=== PATIENT | male | born 1970 | race African-American/Black ===

== ENCOUNTER 2017-07-11 06:50 | Inpatient (IN) | payer MEDICAID, OTHER ==
[~2017-07-11] VITALS: Ht 185.4 cm; Wt 81.6 kg
[2017-07-11] MEDS ORDERED: LORAZEPAM INJ 2 MG/ML VIAL IV ONE (07:00)
[2017-07-11] MEDS ORDERED: IV NS 0.9% 1,000 ML BAG IV ONE (07:00)
[2017-07-11] MEDS ORDERED: ONDANSETRON HCL/PF 4 MG/2 ML VIAL IVP ONE (07:00)
[2017-07-11] MEDS ORDERED: LORAZEPAM INJ 2 MG/ML VIAL ONE (07:03)
[2017-07-11] MEDS ORDERED: ONDANSETRON HCL/PF 4 MG/2 ML VIAL ONE ×2 (07:03→12:25)
[2017-07-11 07:16] LABS: BASOPHILS # (AUTO) 0.1 /CMM (0.0-0.2); BASOPHILS % (AUTO) 0.6 % (0.0-2.0); HEMATOCRIT 44 % (39-51); HEMOGLOBIN 14.7 g/dL (13.5-17.5); LYMPHOCYTES # (AUTO) 0.5 /CMM (0.8-4.8); LYMPHOCYTES % (AUTO) 3.9 % (20.0-44.0); MEAN CORPUSCULAR HEMOGLOBIN 32 PG (26.0-33.0); MEAN CORPUSCULAR HGB CONC 34 g/dl (31.0-36.0); MEAN CORPUSCULAR VOLUME 96 fL (80-96); MONOCYTES # (AUTO) 0.8 /CMM (0.1-1.30); MONOCYTES % (AUTO) 5.7 % (2.0-12.0); NEUTROPHILS # (AUTO) 12.5 /CMM (1.8-8.9); NEUTROPHILS % (AUTO) 89.8 % (43.0-81.0); PLATELET COUNT (AUTO) 151 /CMM (150-450); RDW COEFFICIENT OF VARIATION 13.2 (11.5-15.0); RED BLOOD CELL COUNT(AUTO) 4.55 MIL/uL (4.5-6.0); WHITE BLOOD COUNT (AUTO) 13.9 K/uL (4.3-11.0)
[2017-07-11] MEDS ORDERED: MORPHINE SULFATE INJ 4 MG/ML DISP.SYRIN ONE (07:27)
[2017-07-11] MEDS ORDERED: MORPHINE SULFATE INJ 2 MG/ML DISP.SYRIN IV ONE (07:30)
[2017-07-11 07:31] LABS: ALBUMIN 4.4 g/dL (3.4-5.0); BILIRUBIN,DIRECT 0.2 mg/dL (0.0-0.2); BILIRUBIN,TOTAL 1.1 mg/dL (0.2-1.0); CALCIUM, SERUM 8.1 mg/dL (8.5-10.1); CREATININE 1.5 mg/dL (0.6-1.3); POTASSIUM 4.5 mmol/L (3.5-5.1); TOTAL PROTEIN, SERUM 8.4 g/dL (6.4-8.2)
[2017-07-11] MEDS ORDERED: IV NS 0.9% 1,000 ML IV ONE ×2 (08:00→12:00)
[2017-07-11] MEDS ORDERED: diphenhydrAMINE HCL 50 MG/ML VIAL ONE (09:39)
[2017-07-11] MEDS ORDERED: diphenhydrAMINE HCL 50 MG/ML VIAL IV ONE (10:00)
[2017-07-11] MEDS ORDERED: ONDA4TAB5 PO (11:07)
[2017-07-11] MEDS ORDERED: GABA-534 PO (11:07)
[2017-07-11] MEDS ORDERED: UNK BP MEDICATION (11:12)
[2017-07-11 11:22] LABS: CALCIUM, SERUM 7.7 mg/dL (8.5-10.1); CREATININE 1.1 mg/dL (0.6-1.3); POTASSIUM 4.2 mmol/L (3.5-5.1)
[2017-07-11] MEDS ORDERED: INSULIN REGULAR, HUMAN 100 UNIT in IV NS 0.9% 99 ML IV PRN ×2 (11:30)
[2017-07-11 12:00] VITALS: BP 154/111
[2017-07-11] MEDS ORDERED: ONDANSETRON HCL/PF - ER 4 MG/2 ML VIAL IV ONE (12:30)
[2017-07-11 13:18] LABS: PHOSPHORUS 2.3 mg/dL (2.5-4.9)
[2017-07-11 13:25] LABS: MAGNESIUM 1.2 mg/dL (1.8-2.4)
[2017-07-11 14:00] VITALS: BP 154/111
[2017-07-11] MEDS ORDERED: Z GUARD REMEDY 2 OZ OINT TP PRN (14:00)
[2017-07-11] MEDS ORDERED: ZOLPIDEM TARTRATE 5 MG TABLET PO PRN (14:00)
[2017-07-11] MEDS ORDERED: IBUPROFEN 400 MG TABLET PO PRN (14:00)
[2017-07-11] MEDS ORDERED: MAGNESIUM HYDROXIDE 30 ML UDC PO PRN (14:00)
[2017-07-11] MEDS: BOOST GLUCOSE CONTROL VANILLA 237 ML BOX PO SCH ×3 (14:00→17:00)
[2017-07-11] MEDS ORDERED: ACETAMINOPHEN 325 MG TABLET PO PRN (14:00)
[2017-07-11] MEDS ORDERED: K PHOS NEUTRAL 250 MG TABLET PO ONE (14:30)
[2017-07-11] MEDS: HYDROCODONE/APAP 5/325MG 1 EACH TABLET PO PRN ×3 (14:34→23:24)
[2017-07-11] MEDS: IV NS 0.9% 1,000 ML IV PRN ×2 (14:34→22:01)
[2017-07-11] MEDS: GABAPENTIN 300 MG CAPSULE PO SCH ×2 (14:34→17:00)
[2017-07-11 16:00] VITALS: BP 138/102
[2017-07-11] MEDS ORDERED: Magnesium 1GM/D5W 100ML PREMIX PIGGYBACK IV ONE (17:00)
[2017-07-11] MEDS: diphenhydrAMINE HCL 25 MG CAPSULE PO PRN (17:18)
[2017-07-11] MEDS: Magnesium 1GM/D5W 100ML PREMIX 100 ML IV SCH ×4 (17:18→20:24)
[2017-07-11] MEDS: ONDANSETRON HCL/PF 4 MG/2 ML VIAL IVP PRN (18:04)
[2017-07-11 20:00] VITALS: BP 126/90
[2017-07-12] VITALS (8 sets, daily range): BP systolic 127–142; BP diastolic 89–108
[2017-07-12] MEDS: KETOROLAC TROMETHAMINE INJ 30 MG/ML VIAL IV PRN ×3 (01:46→20:32)
[2017-07-12 07:26] LABS: BASOPHILS % (AUTO) 0.3 % (0.0-2.0); EOSINOPHILS % (AUTO) 0.1 % (0.0-6.0); HEMATOCRIT 44 % (39-51); HEMOGLOBIN 14.9 g/dL (13.5-17.5); LYMPHOCYTES # (AUTO) 1.2 /CMM (0.8-4.8); LYMPHOCYTES % (AUTO) 16.8 % (20.0-44.0); MEAN CORPUSCULAR HEMOGLOBIN 32 PG (26.0-33.0); MEAN CORPUSCULAR HGB CONC 34 g/dl (31.0-36.0); MEAN CORPUSCULAR VOLUME 95 fL (80-96); MONOCYTES # (AUTO) 0.4 /CMM (0.1-1.30); NEUTROPHILS # (AUTO) 5.6 /CMM (1.8-8.9); NEUTROPHILS % (AUTO) 76.8 % (43.0-81.0); PLATELET COUNT (AUTO) 89 /CMM (150-450); RDW COEFFICIENT OF VARIATION 13.3 (11.5-15.0); RED BLOOD CELL COUNT(AUTO) 4.62 MIL/uL (4.5-6.0); WHITE BLOOD COUNT (AUTO) 7.3 K/uL (4.3-11.0)
[2017-07-12 07:48] LABS: CALCIUM, SERUM 8.9 mg/dL (8.5-10.1); CREATININE 0.8 mg/dL (0.6-1.3); POTASSIUM 3.2 mmol/L (3.5-5.1)
[2017-07-12] MEDS: BOOST GLUCOSE CONTROL VANILLA 237 ML BOX PO SCH ×2 (08:00→16:42)
[2017-07-12 08:14] LABS: EOSINOPHILS % (MANUAL) 1 % (0-4); LYMPHOCYTES % (MANUAL) 19 % (16-48); MONOCYTES % (MANUAL) 6 % (0-11.0); NEUTROPHILS % (MANUAL) 74 (42-76)
[2017-07-12] MEDS: GABAPENTIN 300 MG CAPSULE PO SCH ×2 (08:40→16:42)
[2017-07-12] MEDS: PANTOPRAZOLE 40 MG TABLET.DR PO SCH (08:40)
[2017-07-12] MEDS: HYDROCODONE/APAP 5/325MG 1 EACH TABLET PO PRN ×4 (08:46→22:44)
[2017-07-12] MEDS: diphenhydrAMINE HCL 25 MG CAPSULE PO PRN ×3 (08:46→22:17)
[2017-07-12] MEDS: POTASSIUM CHLORIDE 20 MEQ TAB.PRT.SR PO SCH ×2 (09:42→10:50)
[2017-07-12] MEDS: Potassium Phosphate meq 11 MEQ in IV D5W 100 ML IV SCH ×2 (11:26→14:50)
[2017-07-12] MEDS: IV NS 0.9% 1,000 ML IV PRN (20:30)
[2017-07-12] MEDS: ONDANSETRON HCL/PF 4 MG/2 ML VIAL IVP PRN (20:44)
[2017-07-13] MEDS: IV NS 0.9% 1,000 ML IV PRN ×3 (03:22→20:15)
[2017-07-13] MEDS: HYDROCODONE/APAP 5/325MG 1 EACH TABLET PO PRN ×4 (03:26→20:33)
[2017-07-13 04:00] VITALS: BP 114/83
[2017-07-13 07:15] LABS: BASOPHILS % (AUTO) 0.3 % (0.0-2.0); EOSINOPHILS % (AUTO) 0.1 % (0.0-6.0); HEMATOCRIT 46 % (39-51); HEMOGLOBIN 15.2 g/dL (13.5-17.5); LYMPHOCYTES # (AUTO) 1.5 /CMM (0.8-4.8); MEAN CORPUSCULAR HEMOGLOBIN 32 PG (26.0-33.0); MEAN CORPUSCULAR HGB CONC 33 g/dl (31.0-36.0); MEAN CORPUSCULAR VOLUME 96 fL (80-96); MONOCYTES # (AUTO) 0.5 /CMM (0.1-1.30); MONOCYTES % (AUTO) 7.3 % (2.0-12.0); NEUTROPHILS # (AUTO) 4.4 /CMM (1.8-8.9); NEUTROPHILS % (AUTO) 68.3 % (43.0-81.0); PLATELET COUNT (AUTO) 88 /CMM (150-450); RDW COEFFICIENT OF VARIATION 13.6 (11.5-15.0); RED BLOOD CELL COUNT(AUTO) 4.75 MIL/uL (4.5-6.0); WHITE BLOOD COUNT (AUTO) 6.4 K/uL (4.3-11.0)
[2017-07-13 07:33] LABS: CALCIUM, SERUM 8.7 mg/dL (8.5-10.1); MAGNESIUM 1.6 mg/dL (1.8-2.4); PHOSPHORUS 2.6 mg/dL (2.5-4.9); POTASSIUM 3.6 mmol/L (3.5-5.1)
[2017-07-13] MEDS: PANTOPRAZOLE 40 MG TABLET.DR PO SCH (07:54)
[2017-07-13] MEDS: BOOST GLUCOSE CONTROL VANILLA 237 ML BOX PO SCH ×2 (07:55→16:23)
[2017-07-13] MEDS: diphenhydrAMINE HCL 25 MG CAPSULE PO PRN ×2 (07:55→11:22)
[2017-07-13] MEDS: LORAZEPAM 1 MG TABLET PO PRN ×2 (07:59→17:58)
[2017-07-13 08:00] VITALS: BP 126/101
[2017-07-13] MEDS: GABAPENTIN 300 MG CAPSULE PO SCH ×2 (08:00→16:23)
[2017-07-13 08:08] LABS: BAND % (MANUAL) 2 % (0.0-5.0); LYMPHOCYTES % (MANUAL) 27 % (16-48); MONOCYTES % (MANUAL) 6 % (0-11.0); NEUTROPHILS % (MANUAL) 65 (42-76)
[2017-07-13 08:30] VITALS: BP 137/106
[2017-07-13] MEDS: ONDANSETRON HCL/PF 4 MG/2 ML VIAL IVP PRN ×2 (09:11→22:02)
[2017-07-13] MEDS: Magnesium 1GM/D5W 100ML PREMIX 100 ML IV SCH ×2 (10:22→13:13)
[2017-07-13] MEDS ORDERED: ASPIRIN 81 MG TAB.CHEW PO SCH (10:30)
[2017-07-13] MEDS ORDERED: Magnesium 1GM/D5W 100ML PREMIX 100 ML IV SCH (11:00)
[2017-07-13] MEDS: KETOROLAC TROMETHAMINE INJ 30 MG/ML VIAL IV PRN ×2 (11:22→18:03)
[2017-07-13 12:00] VITALS: BP 118/91
[2017-07-13 12:04] LABS: ALBUMIN 3.6 g/dL (3.4-5.0); BILIRUBIN,TOTAL 0.8 mg/dL (0.2-1.0); CALCIUM, SERUM 8.9 mg/dL (8.5-10.1); CREATININE 0.8 mg/dL (0.6-1.3); POTASSIUM 3.3 mmol/L (3.5-5.1); TOTAL PROTEIN, SERUM 7.2 g/dL (6.4-8.2)
[2017-07-13 12:06] LABS: TROPONIN I 0.056 ng/mL (0.00-0.056)
[2017-07-13] MEDS: MORPHINE SULFATE INJ 2 MG/ML DISP.SYRIN IV PRN ×3 (12:32→22:03)
[2017-07-13] MEDS ORDERED: POTASSIUM CHLORIDE 20 MEQ POWDER PACKET PO ONE (15:00)
[2017-07-13 16:00] VITALS: BP 116/92
[2017-07-13 20:00] VITALS: BP 122/91
[2017-07-14] VITALS: BP 127/90
[2017-07-14 04:00] VITALS: BP 116/87
[2017-07-14 05:00] VITALS: BP 116/87
[2017-07-14] MEDS: MORPHINE SULFATE INJ 2 MG/ML DISP.SYRIN IV PRN ×2 (06:09→11:43)
[2017-07-14 07:16] LABS: BASOPHILS % (AUTO) 0.5 % (0.0-2.0); EOSINOPHILS % (AUTO) 0.5 % (0.0-6.0); HEMATOCRIT 39 % (39-51); HEMOGLOBIN 13.3 g/dL (13.5-17.5); LYMPHOCYTES # (AUTO) 1.6 /CMM (0.8-4.8); LYMPHOCYTES % (AUTO) 31.1 % (20.0-44.0); MEAN CORPUSCULAR HEMOGLOBIN 33 PG (26.0-33.0); MEAN CORPUSCULAR HGB CONC 34 g/dl (31.0-36.0); MEAN CORPUSCULAR VOLUME 96 fL (80-96); MONOCYTES # (AUTO) 0.4 /CMM (0.1-1.30); MONOCYTES % (AUTO) 7.5 % (2.0-12.0); NEUTROPHILS % (AUTO) 60.4 % (43.0-81.0); PLATELET COUNT (AUTO) 74 /CMM (150-450); RDW COEFFICIENT OF VARIATION 13.3 (11.5-15.0); RED BLOOD CELL COUNT(AUTO) 4.02 MIL/uL (4.5-6.0)
[2017-07-14 07:41] LABS: TROPONIN I 0.021 ng/mL (0.00-0.056)
[2017-07-14 07:45] LABS: BILIRUBIN,TOTAL 0.7 mg/dL (0.2-1.0); CALCIUM, SERUM 8.5 mg/dL (8.5-10.1); CREATININE 0.7 mg/dL (0.6-1.3); MAGNESIUM 1.6 mg/dL (1.8-2.4); PHOSPHORUS 2.9 mg/dL (2.5-4.9); POTASSIUM 3.8 mmol/L (3.5-5.1)
[2017-07-14 07:53] LABS: BAND % (MANUAL) 2 % (0.0-5.0); EOSINOPHILS % (MANUAL) 1 % (0-4); LYMPHOCYTES % (MANUAL) 35 % (16-48); MONOCYTES % (MANUAL) 6 % (0-11.0); NEUTROPHILS % (MANUAL) 56 (42-76)
[2017-07-14 08:00] VITALS: BP 128/97
[2017-07-14] MEDS: GABAPENTIN 300 MG CAPSULE PO SCH (08:16)
[2017-07-14] MEDS: PANTOPRAZOLE 40 MG TABLET.DR PO SCH (08:16)
[2017-07-14] MEDS: HYDROCODONE/APAP 5/325MG 1 EACH TABLET PO PRN (08:17)
[2017-07-14] MEDS: BOOST GLUCOSE CONTROL VANILLA 237 ML BOX PO SCH (08:20)
[2017-07-14] MEDS: IV NS 0.9% 1,000 ML IV PRN (08:33)
[2017-07-14] MEDS ORDERED: CARVEDILOL 6.25 MG TABLET PO SCH (10:00)
[2017-07-14] MEDS ORDERED: LISINOPRIL (10MG) 10 MG TABLET PO SCH (10:00)
[2017-07-14 10:37] VITALS: BP 128/97
[2017-07-14] MEDS: Magnesium 1GM/D5W 100ML PREMIX 100 ML IV SCH ×2 (10:37→11:39)
[2017-07-14] MEDS: diphenhydrAMINE HCL 25 MG CAPSULE PO PRN (12:33)
[2017-07-14] MEDS ORDERED: CARV6.252 PO (13:17)
[2017-07-14] MEDS ORDERED: LISI10TA59 PO (13:17)
== END 2017-07-14 14:36 | disposition home or self-care (01) | DRG 683 ==
LOC: ER 06:51 → TELE1 13:23 → MEDSG1 07-12 10:37 → TELE1 07-13 10:36 → MEDSG1 07-14 10:16
PROVIDERS: ADMIT Nurse Practitioner Acute Care; ATTEND Nurse Practitioner Acute Care
DX: N17.9 Acute kidney failure, unspecified (principal); E87.2 Acidosis; D69.6 Thrombocytopenia, unspecified; F11.20 Opioid dependence, uncomplicated; E87.1 Hypo-osmolality and hyponatremia; E86.9 Volume depletion, unspecified; R13.10 Dysphagia, unspecified; Z85.038 Personal history of other malignant neoplasm of large intestine; K76.0 Fatty (change of) liver, not elsewhere classified; Z79.899 Other long term (current) drug therapy; M19.90 Unspecified osteoarthritis, unspecified site; I10 Essential (primary) hypertension; F41.9 Anxiety disorder, unspecified; E87.6 Hypokalemia; E83.42 Hypomagnesemia; R73.9 Hyperglycemia, unspecified; Y90.9 Presence of alcohol in blood, level not specified; F10.229 Alcohol dependence with intoxication, unspecified
CPT/HCPCS: 36415; 71010-TC; 74230-TC; 80048-TC; 80053-TC; 80061-TC; 80076-TC; 82010-TC; 82550-TC; 82553-TC; 82962-TC; 83690-TC; 83735-TC; 84100-TC; 84484-TC; 85025-TC; 87081-TC; 93307-TC; A4606; J1200; J1885; J2060; J2270; J2405; J3475; J3490; J7030; J7060; Q0163; Z7610

== ENCOUNTER 2017-09-15 05:50 | Emergency (ER) | payer OTHER, MEDICAID ==
[~2017-09-15] VITALS: Ht 188 cm; Wt 86.2 kg
[2017-09-15 05:50] VITALS: BP 158/102
[~2017-09-15 05:50] MED LIST: CARV6.252 PO; GABA-534 PO; LISI10TA59 PO; ONDA4TAB5 PO
[2017-09-15] MEDS ORDERED: HYDROCODONE/APAP 5/325MG 1 EACH TABLET ONE (06:23)
[2017-09-15] MEDS ORDERED: HYDROCODONE/APAP 5/325MG 1 EACH TABLET PO ONE (06:30)
== END 2017-09-15 08:23 | disposition home or self-care (01) ==
LOC: ER 05:50
DX: S92.331A Displaced fracture of third metatarsal bone, right foot, initial encounter for closed fracture (principal); S92.351A Displaced fracture of fifth metatarsal bone, right foot, initial encounter for closed fracture; M16.11 Unilateral primary osteoarthritis, right hip; F10.10 Alcohol abuse, uncomplicated; Z85.038 Personal history of other malignant neoplasm of large intestine; Z98.890 Other specified postprocedural states; W18.00XA Striking against unspecified object with subsequent fall, initial encounter; Y93.89 Activity, other specified; Y92.89 Other specified places as the place of occurrence of the external cause; Y99.9 Unspecified external cause status
CPT/HCPCS: 29515; 73502; 73630; 99284; A4606; Z7610

== ENCOUNTER 2021-06-06 14:40 | Inpatient (IN) | payer MEDICAID, OTHER ==
[~2021-06-06] VITALS: Ht 185.4 cm; Wt 73.5 kg
--- NOTE | 2021-06-06 10:30 | NUR ---
LESLIE RN NOTE PER ER REPORT GIVEN TO CHARGE NURSE ALEXIS AND EMR, LIBRIUM 25 MG AND FOLATE 1MG BOTH GIVEN WHILE PT. WAS IN EMERGENCY DEPT. NOT GIVEN IN OUR DEPT. Addendum: 06/07/21 at 0009 by MIRZA TABARES RN DISREGARD TIME. CORRECT TIME 0667
[~2021-06-06 14:40] MED LIST changes: +LISI10TA30 PO; -LISI10TA59 PO
--- NOTE | 2021-06-06 14:50 | NUR ---
SILVANO RA860 From Home "Body pain/Dont feel good +Substance/alcohol abuse. PT AAOX3, VSS. RR EVEN & UNLABORED. DENIES CP, SOB, DIZZINESS, N/V AT THIS TIME. AWAITING EVAL BY AZAEL.
--- NOTE | 2021-06-06 15:00 | NUR ---
DR. SMITH AT BS FOR EVAL.
[2021-06-06 15:56] LABS: HEMATOCRIT 44 % (39-51); HEMOGLOBIN 14.2 g/dL (13.5-17.5); LYMPHOCYTES # (AUTO) 0.8 K/uL (0.8-4.8); LYMPHOCYTES % (AUTO) 22.6 % (20.0-44.0); MEAN CORPUSCULAR HGB CONC 32 g/dl (31.0-36.0); MEAN CORPUSCULAR VOLUME 100 fL (80-96); MONOCYTES # (AUTO) 0.4 K/uL (0.1-1.30); MONOCYTES % (AUTO) 9.9 % (2.0-12.0); NEUTROPHILS # (AUTO) 2.5 K/uL (1.8-8.9); NEUTROPHILS % (AUTO) 66.5 % (43.0-81.0); PLATELET COUNT (AUTO) 170 K/uL (150-450); RED BLOOD CELL COUNT(AUTO) 4.44 MIL/uL (4.5-6.0); WHITE BLOOD COUNT (AUTO) 3.7 K/uL (4.3-11.0)
[2021-06-06] MEDS ORDERED: KETOROLAC TROMETHAMINE INJ 30 MG/ML VIAL ONE (17:14)
[2021-06-06] MEDS ORDERED: ONDANSETRON 4 MG TAB.RAPDIS ONE (17:14)
--- NOTE | 2021-06-06 17:25 | NUR ---
MEDICATED PER ERMD ORDER, PT NORA WELL
[2021-06-06] MEDS ORDERED: ONDANSETRON 4 MG TAB.RAPDIS SL ONE (17:30)
[2021-06-06] MEDS ORDERED: KETOROLAC TROMETHAMINE INJ 30 MG/ML VIAL IM ONE (17:30)
[2021-06-06 17:50] LABS: ALBUMIN 4.6 g/dL (3.4-5.0); BILIRUBIN,DIRECT 0.1 mg/dL (0.0-0.2); BILIRUBIN,TOTAL 0.5 mg/dL (0.2-1.0); CALCIUM, SERUM 9.3 mg/dL (8.5-10.1); CREATININE 1.3 mg/dL (0.6-1.3); POTASSIUM 3.3 mmol/L (3.5-5.1); TOTAL PROTEIN, SERUM 8.7 g/dL (6.4-8.2)
[2021-06-06] MEDS ORDERED: IV NS 0.9% 1,000 ML BAG IV ONE ×2 (18:00→19:30)
[2021-06-06] MEDS ORDERED: CEFEPIME 1 GM in IV D5W 50 ML IV ONE (18:00)
[2021-06-06] MEDS ORDERED: VANCOMYCIN 1 GM in IV D5W 250 ML IV ONE (18:00)
[2021-06-06] MEDS ORDERED: LOSA50TA3 PO (18:08)
[2021-06-06] MEDS ORDERED: DEXTROSE 50%-WATER 50 ML DISP.SYRIN ONE (18:13)
[2021-06-06] MEDS ORDERED: DEXTROSE 50%-WATER 50 ML DISP.SYRIN IVP ONE (18:30)
--- NOTE | 2021-06-06 18:46 | NUR ---
CALLED NURSING SUP FOR TELE BED.
[2021-06-06] MEDS ORDERED: FOLIC ACID 1 MG TABLET ONE (18:52)
[2021-06-06] MEDS ORDERED: Thiamine 100 MG/ML VIAL ONE (18:52)
[2021-06-06] MEDS ORDERED: FOLIC ACID 1 MG TABLET PO ONE (19:00)
[2021-06-06] MEDS ORDERED: Thiamine 100 MG in IV D5W 50 ML IV SCH (19:00)
[2021-06-06] MEDS ORDERED: CHLORDIAZEPOXIDE HCL 25 MG CAPSULE ONE (19:20)
[2021-06-06] MEDS ORDERED: CHLORDIAZEPOXIDE HCL 25 MG CAPSULE PO SCH (19:30)
[2021-06-06] MEDS ORDERED: ONDANSETRON HCL/PF 4 MG/2 ML VIAL IVP PRN (19:30)
[2021-06-06] MEDS ORDERED: ZOLPIDEM TARTRATE 5 MG TABLET PO PRN (19:30)
[2021-06-06] MEDS ORDERED: MAGNESIUM HYDROXIDE 30 ML UDC PO PRN (19:30)
[2021-06-06] MEDS ORDERED: ACETAMINOPHEN 325 MG TABLET PO PRN (19:30)
[2021-06-06] MEDS ORDERED: Z GUARD REMEDY 2 OZ OINT TP PRN (19:30)
[2021-06-06] MEDS ORDERED: MAG HYDROX/AL HYDROX/SIMETH 30 ML UDC PO PRN (19:30)
[2021-06-06] MEDS ORDERED: IV D5/0.45 NACL 1,000 ML IV SCH (19:30)
[2021-06-06] MEDS ORDERED: CHLORDIAZEPOXIDE HCL 25 MG CAPSULE PO ONE (19:30)
[2021-06-06] MEDS ORDERED: IV NS 0.9% 1,000 ML IV STA (19:31)
[2021-06-06] MEDS ORDERED: MORPHINE SULFATE INJ 2 MG/ML DISP.SYRIN ONE (19:32)
[2021-06-06] MEDS ORDERED: IOHEXOL-300 100 ML VIAL IV ONE (19:48)
[2021-06-06] MEDS ORDERED: IV NS 0.9% 250 ML IV ONE ×2 (19:49→23:39)
[2021-06-06 20:00] VITALS: BP 133/110
[2021-06-06] MEDS: FOLIC ACID 1 MG TABLET PO SCH (20:00)
[2021-06-06] MEDS ORDERED: MORPHINE SULFATE INJ 2 MG/ML DISP.SYRIN IV ONE (20:00)
[2021-06-06] MEDS ORDERED: LORAZEPAM INJ 2 MG/ML VIAL IV PRN (20:00)
--- NOTE | 2021-06-06 20:33 | NUR ---
PT BACK FROM CT. PT STABLE DENIES CP, SOB, DIZZINESS, N/V AT THIS TIME. WILL CONT TO MONITOR.
--- NOTE | 2021-06-06 21:26 | NUR ---
TELE-TD 116-2
--- NOTE | 2021-06-06 21:39 | NUR ---
REPORT GIVEN TO SERGIO WHITE FOR SAMINA.
--- NOTE | 2021-06-06 21:40 | NUR ---
RN NOTES 9442 REPORT RECEIVED FROM SERGIO BAJWA FOR TRANSFER OF CARE WITH QUESTIONS ANSWERED.
--- NOTE | 2021-06-06 22:00 | NUR ---
RN NOTES 2200 ADMITTED FROM ER 50 YEAR OLD MALE VIA [facility] WITH DX METABOLIC ACIDOSIS, SEPSIS. AWAKE ALERT AND ORIENTED X4. CONNECTED TO DIAMOND SORTER. NSR 90S WITH NO ECTOPIES. ADMISSION ASSESSMENT DONE. NOTED WITH ABDOMINAL BREATHING. O2 SATURATION 100% ON 2L PER NC. HOB KEPT ELEVATED FOR MAX OXYGENATION. PATIENT KEEPS ASKING FOR WATER. ABLE TO TOLERATE PO INTAKE. ADMISSION CARE DONE. NEEDS ATTENDED. CALL LIGHT PLACED WITHIN REACH.
[2021-06-06 22:10] LABS: CREATININE 1.6 mg/dL (0.6-1.3); POTASSIUM 3.1 mmol/L (3.5-5.1)
--- NOTE | 2021-06-06 22:30 | NUR ---
RN NOTES 2230 CRITICAL CO2 LEVEL NOTED AT 2, SOLAR ENERGY TECHNICIAN FARNSWORTH NOTIFIED TO DO STAT ABG. ORDER NOTED, RT ELEAAZR NOTIFIED.
--- NOTE | 2021-06-06 22:50 | NUR ---
2250 WET PROCESS OPERATOR FARNSWORTH AT BEDSIDE AND EXAMINED PATIENT. UPDATED HIM ON PATIENT'S CURRENT CONDITION.
[2021-06-06 23:17] LABS: ABG BASE EXCESS -31.6 mmol/L; ABG OXYGEN SATURATION 97.5 % (92.0-98.5); ABG PCO2 16.1 mmHg (35.0-45.0); ABG PH 6.778 (7.350-7.450); ABG PO2 165.3 mmHg (75.0-100.0); AaDO2 15.3 mmHg; COHb 0.3 % (0.5-1.5); MetHb 0.5 % (0.0-1.5); O2Hb 96.7 % (94.0-97.0); SITE, ABG Right Radial; VENT MODE, BG N/C 2LPM
--- NOTE | 2021-06-06 23:20 | NUR ---
RT NOTE CRITICAL ABG RESULTS REPORTED TO CHARGED NURSE.
--- NOTE | 2021-06-06 23:20 | NUR ---
RN NOTES 2319 STAT ABG RESULT RELAYED TO SHANNA FARNSWORTH WITH ORDERS MADE.
--- NOTE | 2021-06-06 23:25 | NUR ---
RN NOTES 1198 RECEIVED A CALL FROM RADIOLOGY REGARDING CTA ABDOMEN ORDER TO CLARIFY WITH MD IF OK TO DO WITH CREAT 1.6, PER EXERCISE RIDER CIARA OL TO DO CTA ORDERED.
--- NOTE | 2021-06-06 23:27 | NUR ---
RN NOTES 2327 RECEIVED AN ORDER FROM SHANNA FARNSWORTH TO TRANSFER PATIENT TO ICU.
[2021-06-06] MEDS ORDERED: SODIUM BICARBONATE SYR 50 MEQ/50 ML DISP.SYRIN IV ONE (23:30)
[2021-06-06] MEDS ORDERED: SODIUM BICARBONATE SYR 100 MEQ in IV D5/0.45 NACL 1,000 ML IV PRN (23:30)
--- NOTE | 2021-06-06 23:30 | NUR ---
2330 REPORT GIVEN TO SERGIO MORRIS FOR TRANSFER OF CARE WITH QUESTIONS ANSWERED.
[2021-06-06] MEDS ORDERED: CT SWABBABLE VALVE TRANS SET 1 EA INFUS.SET MC ONE (23:39)
[2021-06-06] MEDS ORDERED: IOHEXOL-350 100 ML VIAL IV ONE (23:39)
[2021-06-06] MEDS: PANTOPRAZOLE 40 MG VIAL IV SCH (23:44)
--- NOTE | 2021-06-06 23:45 | NUR ---
[address] ON ACLS PROTOCOL. PATIENT AWAKE AND VERBALLY RESPONSIVE. NO SIGNS OF DISTRESS NOTED.
--- NOTE | 2021-06-06 23:52 | NUR ---
LESLIE RN NOTE PT. LEFT TO CTA W/ CONTRAST AT 8771 ACCOMPANIED BY TECH AND CHARGE NURSE ALEXIS. WILL BE TRANSFERRED TO ICU WHEN EXAMINATION COMPLETED.
[2021-06-07] VITALS (37 sets, daily range): BP systolic 87–148; BP diastolic 40–107
--- NOTE | 2021-06-07 00:08 | NUR ---
0008 TRANSFERRED TO ICU ROOM 257 FROM [place]. NO CHANGES IN CONDITION NOTED.
[2021-06-07] MEDS ORDERED: SODIUM BICARBONATE SYR 50 MEQ/50 ML DISP.SYRIN ONE (00:25)
[2021-06-07] MEDS: IV D5/ 0.9% NACL 1,000 ML IV PRN ×3 (00:45→21:20)
[2021-06-07] MEDS ORDERED: IV NS 0.9% 250 ML IV PRN (01:00)
--- NOTE | 2021-06-07 01:57 | NUR ---
OIL SPRAYER CALLED [facility] FOR CT ABD/PELVIS RESULTS
[2021-06-07] MEDS ORDERED: Thiamine 100 MG/ML VIAL ONE (01:59)
[2021-06-07 02:31] LABS: CALCIUM, SERUM 6.5 mg/dL (8.5-10.1); CREATININE 1.5 mg/dL (0.6-1.3)
[2021-06-07] MEDS ORDERED: Thiamine 100 MG in IV D5W 50 ML IV SCH (03:00)
[2021-06-07 04:26] LABS: BASOPHILS % (AUTO) 0.7 % (0.0-2.0); HEMATOCRIT 28 % (39-51); HEMOGLOBIN 9.4 g/dL (13.5-17.5); LYMPHOCYTES # (AUTO) 0.2 K/uL (0.8-4.8); LYMPHOCYTES % (AUTO) 29.2 % (20.0-44.0); MEAN CORPUSCULAR HGB CONC 34 g/dl (31.0-36.0); MEAN CORPUSCULAR VOLUME 96 fL (80-96); MONOCYTES % (AUTO) 3.4 % (2.0-12.0); NEUTROPHILS # (AUTO) 0.6 K/uL (1.8-8.9); NEUTROPHILS % (AUTO) 66.7 % (43.0-81.0); PLATELET COUNT (AUTO) 84 K/uL (150-450)
[2021-06-07] MEDS ORDERED: CALCIUM CITRATE(CITRACAL) /VITAMIN D 1 TAB TABLET PO SCH (04:30)
[2021-06-07 04:37] LABS: WHITE BLOOD COUNT (AUTO) 0.8 K/uL (4.3-11.0)
[2021-06-07 04:41] LABS: CALCIUM, SERUM 6.3 mg/dL (8.5-10.1); CREATININE 1.5 mg/dL (0.6-1.3); PHOSPHORUS 2.3 mg/dL (2.5-4.9); POTASSIUM 3.5 mmol/L (3.5-5.1)
[2021-06-07 05:02] LABS: MAGNESIUM 0.8 mg/dL (1.8-2.4)
[2021-06-07] MEDS ORDERED: Magnesium 1GM/D5W 100ML PREMIX 100 ML IV SCH (05:30)
[2021-06-07] MEDS ORDERED: INSULIN REGULAR, HUMAN 100 UNIT/ML 3 ML VIAL SQ ONE (05:30)
[2021-06-07] MEDS: Magnesium 1GM/D5W 100ML PREMIX 100 ML IV SCH ×5 (05:40→13:25)
[2021-06-07] MEDS ORDERED: INSULIN REGULAR, HUMAN 100 UNIT/ML 3 ML VIAL ONE (05:44)
[2021-06-07] MEDS: MORPHINE SULFATE INJ 2 MG/ML DISP.SYRIN IV PRN ×3 (05:47→17:00)
--- NOTE | 2021-06-07 06:11 | NUR ---
MOBILE EQUIPMENT OPERATOR GLUCOSE 307 INSULIN GIVEN PER ORDER. FIRST BAG OF MAGNESIUM INFUSING FOR LEVEL 0.8
--- NOTE | 2021-06-07 06:19 | NUR ---
BLIND EYELETTER KOJO/VIT D NOT AVAILABLE WILL ENDORSE TO DAY SHIFT
--- NOTE | 2021-06-07 07:15 | NUR ---
RN OPENING NOTES RECEIVED PT AWAKE, A/O X4. ON 2L O2 VIA NC, SATURATING @100%. NO SOB OR ANY S/S OF ACUTE RESPIRATORY DISTRESS NOTED. SR ON TELE MONITOR. CONDOM CATH IN PLACE DRAINING YELLOW COLORED URINE VIA GRAVITY. NPO. IV ACCESS AT L AC #18 AND R AC #20 BOTH INTACT, PATENT AND FLUSHED. NO PAIN REPORTED AT THIS TIME. SAFETY MEASURES IN PLACE. CALL LIGHT WITHIN REACH. BED LOCKED AND IN LOWEST POSITION WITH SIDE RAILS UP X2. WILL CONTINUE TO MONITOR.
--- NOTE | 2021-06-07 07:55 | NUR ---
RN NOTES DR. JOHANSEN AT BEDSIDE. NEW ORDERS MADE AND CARRIED OUT.
[2021-06-07 08:03] LABS: BASOPHILS % (AUTO) 0.2 % (0.0-2.0); EOSINOPHILS % (AUTO) 0.1 % (0.0-6.0); HEMATOCRIT 28 % (39-51); HEMOGLOBIN 9.4 g/dL (13.5-17.5); LYMPHOCYTES # (AUTO) 0.1 K/uL (0.8-4.8); LYMPHOCYTES % (AUTO) 4.6 % (20.0-44.0); MEAN CORPUSCULAR HGB CONC 34 g/dl (31.0-36.0); MEAN CORPUSCULAR VOLUME 95 fL (80-96); MONOCYTES # (AUTO) 0.1 K/uL (0.1-1.30); MONOCYTES % (AUTO) 7.4 % (2.0-12.0); NEUTROPHILS # (AUTO) 1.4 K/uL (1.8-8.9); NEUTROPHILS % (AUTO) 87.7 % (43.0-81.0); PLATELET COUNT (AUTO) 62 K/uL (150-450); RED BLOOD CELL COUNT(AUTO) 2.92 MIL/uL (4.5-6.0)
[2021-06-07 08:17] LABS: WHITE BLOOD COUNT (AUTO) 1.5 K/uL (4.3-11.0)
[2021-06-07] MEDS: PANTOPRAZOLE 40 MG VIAL IV SCH ×2 (08:34→21:20)
[2021-06-07] MEDS: CARVEDILOL 6.25 MG TABLET PO SCH ×2 (08:34→21:00)
[2021-06-07] MEDS: LOSARTAN POTASSIUM 50 MG TABLET PO SCH (08:34)
[2021-06-07] MEDS: CHLORDIAZEPOXIDE HCL 25 MG CAPSULE PO SCH ×3 (08:35→17:56)
[2021-06-07] MEDS: GABAPENTIN 300 MG CAPSULE PO SCH ×2 (08:35→17:00)
[2021-06-07] MEDS: FOLIC ACID 1 MG TABLET PO SCH (08:35)
[2021-06-07 09:24] LABS: BAND % (MANUAL) 10 % (0.0-5.0); EOSINOPHILS % (MANUAL) 1 % (0-4); LYMPHOCYTES % (MANUAL) 2 % (16-48); MONOCYTES % (MANUAL) 5 % (0-11.0); NEUTROPHILS % (MANUAL) 82 (42-76)
[2021-06-07] MEDS ORDERED: K PHOS NEUTRAL 250 MG TABLET PO ONE (10:30)
[2021-06-07] MEDS: THIAMINE HCL 100 MG TABLET PO SCH (10:45)
[2021-06-07 11:23] LABS: CALCIUM, SERUM 6.6 mg/dL (8.5-10.1); CREATININE 1.8 mg/dL (0.6-1.3); MAGNESIUM 1.6 mg/dL (1.8-2.4); POTASSIUM 2.9 mmol/L (3.5-5.1)
[2021-06-07] MEDS: BLOOD SUGAR DIAGNOSTIC 1 EACH STRIP VI SCH ×3 (11:50→21:20)
[2021-06-07] MEDS ORDERED: DEXTROSE 50%-WATER 50 ML DISP.SYRIN IV PRN (12:00)
[2021-06-07] MEDS ORDERED: SODIUM BICARBONATE SYR 100 MEQ in IV D5/0.45 NACL 1,000 ML IV SCH (12:00)
[2021-06-07] MEDS ORDERED: *INSULIN REGULAR(HUMULIN R)HUM 100 UNIT/ML VIAL SQ PRN (12:00)
[2021-06-07] MEDS: POTASSIUM CL. PREMIX PERIPHER. 50 ML IV SCH ×4 (12:37→15:53)
[2021-06-07] MEDS ORDERED: Sodium Phosphate 30 MMOL in IV NS 0.9% 250 ML IV SCH (13:00)
[2021-06-07] MEDS ORDERED: Calcium Gluconate 1GM/10ML 4.65 MEQ in IV D5W 50 ML IV ONE (13:00)
[2021-06-07] MEDS: INSULIN REGULAR, HUMAN 100 UNIT/ML 3 ML VIAL SQ PRN ×2 (13:35→17:57)
--- NOTE | 2021-06-07 14:50 | NUR ---
Control Integration Engineer note: disability services coordinator consult requested for alcohol use and to discuss patient's caregiver status for his mother with Alzheimer's Disease. Patient is a 50-year-old, male. SW met with patient at his bedside in the ICU. Patient was alert and oriented x2, name and time. Patient was in and out of sleep. Patient stated that he currently lives at [address] [place] [id number]; [phone]. Patient stated that he currently lives with his mother, Eddie Estrada, . Patient provided SW with consent to speak to his mother. Patient reported that he is currently a caregiver for his mother. Patient stated that his daughter lives with him and his mother as well. SW asked the patient how old his mother is and patient reported that she is [id number]. SW was unable to obtain further consult information and was unable to assess patient's need for community resources. Patient stated, "I'm really tired, can we talk later?" SW attempted a wellness check and contacted patient's mother, Eddie. SW left a voicemail. PLAN: SS will remain available and follow up as needed.
--- NOTE | 2021-06-07 15:55 | NUR ---
Line Welder note: WILLA was able to reach patient's mother, Eddie Estrada, for a wellness check. Eddie confirmed that the patient is her caregiver. Jana was alert and oriented. She stated that she is independent with ADL's and does not require consistent caregiving. She stated that he is able to make her needs known and care for her safety. Jana told WILLA that she would call the hospital to get an update on her son's condition. No further SS intervention at this time, however, WILLA will remain available as needed.
--- NOTE | 2021-06-07 17:30 | NUR ---
RN NOTES BLOOD SUGAR OF 104, NO INSULIN COVERAGE.
--- NOTE | 2021-06-07 18:54 | NUR ---
RN CLOSING NOTES NO SIGNIFICANT CHANGES THROUGHOUT THE SHIFT. ON 2L O2 VIA NC, NO SOB OR ANY RESPIRATORY DISTRESS. ALL DUE MEDS GIVEN. NEEDS ATTENDED. KEPT CLEAN, DRY AND COMFORTABLE. SAFETY MEASURES IN PLACE. WILL ENDORSE TO NIGHT RN FOR SAMINA.
--- NOTE | 2021-06-07 19:30 | NUR ---
DRAPERY ROD ASSEMBLER RCD PT WITH RAC IV PULLED OUT, CONDOM CATH PULLED OUT. PT HAD SPILLED FOOD ON THE FLOOR. PT HAD BM IN BED. PROVIED PT WITH BED BATH AND EDUCATED ON THE NEED TO USE CALL LIGHT AND CALL FOR ASSISTANCE.
[2021-06-07 19:43] LABS: CALCIUM, SERUM 7.5 mg/dL (8.5-10.1); CARBON DIOXIDE 31 mmol/L (21-32); CHLORIDE 98 mmol/L (98-107); CREATININE 1.4 mg/dL (0.6-1.3); GLUCOSE 96 mg/dL (74-106); POTASSIUM 3.2 mmol/L (3.5-5.1); SODIUM SERUM 139 mmol/L (136-145); UREA NITROGEN, BLOOD 10 mg/dL (7-18)
--- NOTE | 2021-06-07 21:04 | NUR ---
CRISIS THERAPIST NON ADMIN COREG 90/70 HR 87
--- NOTE | 2021-06-07 22:00 | NUR ---
GROUP PROGRAM MANAGER PT REMOVING O2 SENSOR AND ECG LEADS PROVIED PT EDUCATION ON THE IMPORTANCE OF BEING MONITORED.
[2021-06-08] VITALS (43 sets, daily range): BP systolic 86–155; BP diastolic 55–98
--- NOTE | 2021-06-08 04:00 | NUR ---
PROFESSIONAL SYSTEM ADMINISTRATOR PT GOT OUT OF BED AND URINATED ON FLOOR. URINAL AND CALL LIGHT WERE NEXT TO THE PT.
--- NOTE | 2021-06-08 04:40 | NUR ---
SENIOR SOFTWARE QUALITY ANALYST PT REMOVING LEADS
[2021-06-08 06:20] LABS: BILIRUBIN,URINE NEGATIVE (NEGATIVE); COLOR,URINE YELLOW (YELLOW); LEUKOCYTE ESTERASE ,URINE NEGATIVE (NEGATIVE); NITRITE, URINE NEGATIVE (NEGATIVE); PROTEIN,URINE NEGATIVE (NEGATIVE); UGLUCOSE 500 MG/DL mg/dL (NEGATIVE); UROBILINOGEN,URINE 0.2 EU/dL (0.2)
[2021-06-08 06:25] LABS: FERRITIN 1346 ng/mL (8-388)
[2021-06-08 06:49] LABS: BACTERIA,URINE None seen /HPF (None Seen); RBC,URINE 0-2 /HPF (0-2); SQUAMOUS EPITHELIAL CELL,UR Few /HPF (None Seen); WBC,URINE NONE SEEN /HPF (0-3)
--- NOTE | 2021-06-08 06:49 | NUR ---
PLAYERS ASSISTANT PT USED BSC TO HAVE BM. CLEANED SELF AND THREW TOWELS WITH STOOL ON FLOOR.
--- NOTE | 2021-06-08 07:00 | NUR ---
RN NOTES RECEIVED PT ON BED, A/Ox3-4, ON RA , NO DISTRESS NOTED , ON TELE SR HR IN 80'S , IVF D5NS AT 100 CC/HR RUNNING , RIGHT WRIST IV SITE CLEAN, DRY AND INTACT, SR UP x3 , BED LOCKED AND IN LOWEST POSITION, CONTINUE TO MONITOR .
[2021-06-08 07:53] LABS: IRON, SERUM 67 ug/dl (50-175); TOTAL IRON BINDING CAPACITY 199 ug/dl (250-450)
[2021-06-08] MEDS: MORPHINE SULFATE INJ 2 MG/ML DISP.SYRIN IV PRN ×4 (08:06→21:22)
[2021-06-08] MEDS: BLOOD SUGAR DIAGNOSTIC 1 EACH STRIP VI SCH ×4 (08:12→22:03)
[2021-06-08] MEDS: GABAPENTIN 300 MG CAPSULE PO SCH ×2 (08:18→16:17)
[2021-06-08] MEDS: CHLORDIAZEPOXIDE HCL 25 MG CAPSULE PO SCH ×3 (08:18→16:17)
[2021-06-08] MEDS: FOLIC ACID 1 MG TABLET PO SCH (08:18)
[2021-06-08] MEDS: PANTOPRAZOLE 40 MG VIAL IV SCH ×2 (08:18→21:21)
[2021-06-08] MEDS: THIAMINE HCL 100 MG TABLET PO SCH (08:19)
[2021-06-08] MEDS: CARVEDILOL 6.25 MG TABLET PO SCH ×2 (08:19→21:21)
[2021-06-08 08:58] LABS: BASOPHILS # (AUTO) 0.1 K/uL (0.0-0.2); BASOPHILS % (AUTO) 0.9 % (0.0-2.0); EOSINOPHILS % (AUTO) 0.4 % (0.0-6.0); HEMATOCRIT 30 % (39-51); HEMOGLOBIN 10.1 g/dL (13.5-17.5); LYMPHOCYTES # (AUTO) 0.6 K/uL (0.8-4.8); LYMPHOCYTES % (AUTO) 10.3 % (20.0-44.0); MEAN CORPUSCULAR HGB CONC 34 g/dl (31.0-36.0); MEAN CORPUSCULAR VOLUME 95 fL (80-96); MONOCYTES # (AUTO) 0.3 K/uL (0.1-1.30); MONOCYTES % (AUTO) 4.4 % (2.0-12.0); NEUTROPHILS # (AUTO) 5.1 K/uL (1.8-8.9); PLATELET COUNT (AUTO) 52 K/uL (150-450); RED BLOOD CELL COUNT(AUTO) 3.15 MIL/uL (4.5-6.0); WHITE BLOOD COUNT (AUTO) 6.1 K/uL (4.3-11.0)
[2021-06-08] MEDS: LOSARTAN POTASSIUM 50 MG TABLET PO SCH (09:00)
[2021-06-08 09:33] LABS: CALCIUM, SERUM 7.6 mg/dL (8.5-10.1); CREATININE 1.1 mg/dL (0.6-1.3)
[2021-06-08 09:36] LABS: MAGNESIUM 1.7 mg/dL (1.8-2.4); PHOSPHORUS 1.4 mg/dL (2.5-4.9); POTASSIUM 2.7 mmol/L (3.5-5.1)
[2021-06-08] MEDS: IV D5/ 0.9% NACL 1,000 ML IV PRN ×2 (09:40→21:35)
[2021-06-08] MEDS: POTASSIUM PHOSPHATE MM 7.5 MMOL in IV NS 0.9% 100 ML IV SCH ×2 (09:45→12:16)
[2021-06-08] MEDS ORDERED: POTASSIUM CHLORIDE 20 MEQ TAB.PRT.SR PO STA (09:46)
--- NOTE | 2021-06-08 10:00 | NUR ---
RN NOTES DR VALENTE NOTIFIED REGARDING K-2.7 ,PHOS 1.4, AND MG 1.7, NEW ORDER RECEIVED .
[2021-06-08] MEDS: INSULIN REGULAR, HUMAN 100 UNIT/ML 3 ML VIAL SQ PRN (12:14)
[2021-06-08] MEDS: Magnesium 1GM/D5W 100ML PREMIX 100 ML IV SCH ×2 (13:49→14:56)
[2021-06-08 17:33] LABS: CALCIUM, SERUM 7.4 mg/dL (8.5-10.1); CREATININE 0.9 mg/dL (0.6-1.3); MAGNESIUM 2.2 mg/dL (1.8-2.4); PHOSPHORUS 2.2 mg/dL (2.5-4.9)
[2021-06-08 17:39] LABS: POTASSIUM 2.7 mmol/L (3.5-5.1)
--- NOTE | 2021-06-08 17:45 | NUR ---
RN NOTES MD NOTIFIED REGARDING K-2.7 AND PHOSPHOROUS 2.2, NEW ORDER RECEIVED .
[2021-06-08] MEDS ORDERED: POTASSIUM CHLORIDE 20 MEQ TAB.PRT.SR PO ONE (18:00)
[2021-06-08] MEDS ORDERED: POTASSIUM PHOSPHATE MM 7.5 MMOL in IV NS 0.9% 100 ML IV ONE (18:00)
--- NOTE | 2021-06-08 18:00 | NUR ---
RN NOTES PT HAD 3 LOOSE STOOL ON THIS SHIFT, MD NOTIFIED, UP TO BEDSIDE COMMODE WITH ASSIST , ON TELE SR HR IN 80'S , D5 NS AT 100CC/HR RUNNING , SR UP x3, CALL LIGHT WITHIN EASY REACH, BED LOCKED AND IN LOWEST POSITION, WILL ENDORSE TO LIQUOR CLERK NURSE FOR CONTINUITY OF CARE .
[2021-06-08] MEDS: POTASSIUM PHOSPHATE MM 15 MMOL in IV NS 0.9% 250 ML IV SCH (18:48)
[2021-06-08] MEDS: ENSURE ENLIVE 237 ML LIQUID (VANILLA) PO SCH (19:00)
--- NOTE | 2021-06-08 19:38 | NUR ---
DIRECTOR OF DATABASE MARKETING NOTE RECEIVED PT ON BED, A/Ox3, ON RA , NO DISTRESS NOTED, DENIES ANY PAIN OR DISCOMFORT. SR ON TELE MONITOR. D5NS INFUSING AT 100 CC. IV TO RIGHT WRIST PATENT INTACT AND FLUSHING WELL. SR UP x3 , BED LOCKED AND IN LOWEST POSITION, CALL LIGHT WITHIN EASY REACH. WILL CONTINUE TO MONITOR PT.
--- NOTE | 2021-06-08 21:18 | NUR ---
RN NOTE PT HAD 1 LOOSE BOWEL MOVEMENT IN THR BEDSIDE COMMODE.
[2021-06-09] VITALS (35 sets, daily range): BP systolic 93–142; BP diastolic 67–99
[2021-06-09] MEDS: POTASSIUM PHOSPHATE MM 15 MMOL in IV NS 0.9% 250 ML IV SCH (00:31)
[2021-06-09] MEDS: MORPHINE SULFATE INJ 2 MG/ML DISP.SYRIN IV PRN ×3 (03:30→22:57)
[2021-06-09 04:56] LABS: BASOPHILS % (AUTO) 0.3 % (0.0-2.0); EOSINOPHILS % (AUTO) 0.5 % (0.0-6.0); HEMATOCRIT 27 % (39-51); HEMOGLOBIN 9.2 g/dL (13.5-17.5); LYMPHOCYTES # (AUTO) 1.1 K/uL (0.8-4.8); LYMPHOCYTES % (AUTO) 18.8 % (20.0-44.0); MEAN CORPUSCULAR HGB CONC 34 g/dl (31.0-36.0); MEAN CORPUSCULAR VOLUME 95 fL (80-96); MONOCYTES # (AUTO) 0.2 K/uL (0.1-1.30); MONOCYTES % (AUTO) 4.3 % (2.0-12.0); NEUTROPHILS # (AUTO) 4.5 K/uL (1.8-8.9); NEUTROPHILS % (AUTO) 76.1 % (43.0-81.0); RED BLOOD CELL COUNT(AUTO) 2.87 MIL/uL (4.5-6.0); WHITE BLOOD COUNT (AUTO) 5.9 K/uL (4.3-11.0)
[2021-06-09 05:14] LABS: ALBUMIN 2.4 g/dL (3.4-5.0); BILIRUBIN,TOTAL 0.3 mg/dL (0.2-1.0); CALCIUM, SERUM 7.2 mg/dL (8.5-10.1); CREATININE 0.9 mg/dL (0.6-1.3); POTASSIUM 3.1 mmol/L (3.5-5.1); TOTAL PROTEIN, SERUM 4.9 g/dL (6.4-8.2)
[2021-06-09 05:38] LABS: PLATELET COUNT (AUTO) 44 K/uL (150-450)
[2021-06-09] MEDS: IV D5/ 0.9% NACL 1,000 ML IV PRN (07:01)
--- NOTE | 2021-06-09 07:31 | NUR ---
RN NOTE REPORT GIVEN TO AM RN FOR CONTINUATION OF CARE. PT REMAINED STABLE DURING SHIFT.
--- NOTE | 2021-06-09 08:00 | NUR ---
RN NOTES RECEIVED PT ON BED,AWAKE A/Ox3 ON RA , NO ACUTE RESPIRATORY DISTRESS NOTED , ON TELE MONITOR BEDSIDE SR HR IN 80'S . INFUSING IVF D5NS AT 100 ML/HR INTACT ON RIGHT WRIST. PATIENT TOLERATED BREAKFAST WELL, USING URINAL . BED LOCKED AND IN LOWEST POSITION, CONTINUE TO MONITOR .
[2021-06-09 08:10] LABS: IMMUNOGLOBULIN A, SERUM 327 mg/dL (90-386); IMMUNOGLOBULIN G, SERUM 459 mg/dL (603-1613); IMMUNOGLOBULIN M, SERUM 64 mg/dL (20-172)
[2021-06-09] MEDS ORDERED: ENOXAPARIN SODIUM 40 MG/0.4 ML DISP.SYRIN SQ SCH (08:30)
--- NOTE | 2021-06-09 09:30 | NUR ---
RN NOTES SEEN PATIENT VIA HOSPITALIST Dr CONWAY NEW ORDER IS , PATIENT WILL TRANSFER TELE UNIT AFTER PCR COVID RESULT.
[2021-06-09] MEDS ORDERED: POTASSIUM CHLORIDE 20 MEQ TAB.PRT.SR PO ONE (10:00)
--- NOTE | 2021-06-09 10:00 | NUR ---
rn notes PT with the patient at this time walking out of the bed.
[2021-06-09] MEDS: FOLIC ACID 1 MG TABLET PO SCH (10:19)
[2021-06-09] MEDS: GABAPENTIN 300 MG CAPSULE PO SCH ×2 (10:19→17:51)
[2021-06-09] MEDS: LOSARTAN POTASSIUM 50 MG TABLET PO SCH (10:20)
[2021-06-09] MEDS: CHLORDIAZEPOXIDE HCL 25 MG CAPSULE PO SCH ×3 (10:20→17:51)
[2021-06-09] MEDS: THIAMINE HCL 100 MG TABLET PO SCH (10:20)
[2021-06-09] MEDS: ENSURE ENLIVE 237 ML LIQUID (VANILLA) PO SCH ×3 (10:21→17:52)
[2021-06-09] MEDS: PANTOPRAZOLE 40 MG VIAL IV SCH ×2 (10:21→20:16)
[2021-06-09] MEDS: CARVEDILOL 6.25 MG TABLET PO SCH ×2 (10:23→20:59)
--- NOTE | 2021-06-09 10:35 | NUR ---
rn notes administered Morphine sulfate 2mg/ml iv push for 7/10 generalized pain, bp 115/86, p-84. also administered scheduled medication , will follow up.
--- NOTE | 2021-06-09 12:26 | NUR ---
RN NOTES SEEN PATIENT VIA FINANCE CONTROLLER PATIENT WILL INCREASE FLUID INTAKE, AND GET D/C IV HYDRATION D5NS INFUSION AT THIS TIME.
--- NOTE | 2021-06-09 14:08 | NUR ---
PCR RESULTS RECEIVED FROM [facility] IN LAB. PCR IS NEGATIVE.
[2021-06-09 16:53] LABS: ALBUMIN 2.6 g/dL (3.4-5.0); BILIRUBIN,TOTAL 0.3 mg/dL (0.2-1.0); CALCIUM, SERUM 7.8 mg/dL (8.5-10.1); CREATININE 0.9 mg/dL (0.6-1.3); TOTAL PROTEIN, SERUM 5.6 g/dL (6.4-8.2)
--- NOTE | 2021-06-09 17:51 | NUR ---
rn notes administered Ativan 2 mg/ml iv push for anxiety per patient request bp 142/97, p-94, also administered scheduled medication.
--- NOTE | 2021-06-09 18:57 | NUR ---
rn notes patient stable, medication were administered for anxiety effective. due medication administered, pm care. patient vss. patient will transfer to the tele unit. will give bedside report.
--- NOTE | 2021-06-09 19:05 | NUR ---
rn notes patient stable , vss, transported to the tele unit room 116, bed 2. bedside report given to RN Aissatou. Rn verbalized understanding follow up plan of care.
--- NOTE | 2021-06-09 19:30 | NUR ---
RN NOTE RECEIVED PATIENT FROM ICU ALERT ORIENTED X4 ON TELE MONITORING,VERBALLY RESPONSIVE ON ROOM AIR O2:99% IV SITE IS ON RIGHT WRIST INTACT PATENT AMBULATORY,CONTINENT TO BOWEL/BLADDER.CALL LIGHT WITHIN REACH,SAFETY MEASURE IMPLEMENT BED IN LOW POSITON AND LOCKED,BED ALARM IS ON,CONTINUE TO MONITOR
[2021-06-10] VITALS: BP 101/71
[2021-06-10 04:00] VITALS: BP 117/77
--- NOTE | 2021-06-10 06:35 | NUR ---
RN NOTE PATIENT REMAINS ON ALERT ORIENTED VERBALLY RESPONSIVE ON ROOM AIR O2:99% IV SITE IS ON RIGHT HAND #22 G AMBULATORY WITH ASSIST,ALL DUE MEDS GIVEN MD ORDERED KEPT CLEAN NAD DRY ALL THE TIME,ALL NEEDS MET ENDORSE NEXT COMING SHIFT FOR CONTINUATION OF CARE.
[2021-06-10 06:43] LABS: BASOPHILS % (AUTO) 0.6 % (0.0-2.0); EOSINOPHILS % (AUTO) 0.9 % (0.0-6.0); HEMATOCRIT 30 % (39-51); HEMOGLOBIN 9.9 g/dL (13.5-17.5); LYMPHOCYTES # (AUTO) 1.1 K/uL (0.8-4.8); LYMPHOCYTES % (AUTO) 28.7 % (20.0-44.0); MEAN CORPUSCULAR HGB CONC 33 g/dl (31.0-36.0); MEAN CORPUSCULAR VOLUME 95 fL (80-96); MONOCYTES # (AUTO) 0.2 K/uL (0.1-1.30); MONOCYTES % (AUTO) 5.4 % (2.0-12.0); NEUTROPHILS # (AUTO) 2.4 K/uL (1.8-8.9); NEUTROPHILS % (AUTO) 64.4 % (43.0-81.0); RED BLOOD CELL COUNT(AUTO) 3.13 MIL/uL (4.5-6.0); WHITE BLOOD COUNT (AUTO) 3.7 K/uL (4.3-11.0)
[2021-06-10 06:55] LABS: PLATELET COUNT (AUTO) 53 K/uL (150-450)
[2021-06-10 07:06] LABS: *SPE A/G RATIO 1.5 (0.7-1.7); *SPE ALBUMIN 2.9 g/dL (2.9-4.4); *SPE ALPHA-1-GLOBULIN 0.2 g/dL (0.0-0.4); *SPE ALPHA-2-GLOBULIN 0.5 g/dL (0.4-1.0); *SPE BETA GLOBULIN 0.7 g/dL (0.7-1.3); *SPE GLOBULIN, TOTAL 1.9 g/dL (2.2-3.9); *SPE M-SPIKE Not Observed g/dL (Not Observed); *SPEGAMMA GLOBULIN 0.4 g/dL (0.4-1.8)
[2021-06-10 08:00] VITALS: BP 124/90
[2021-06-10 08:03] LABS: ALBUMIN 2.6 g/dL (3.4-5.0); BILIRUBIN,TOTAL 0.5 mg/dL (0.2-1.0); CREATININE 0.8 mg/dL (0.6-1.3); POTASSIUM 3.6 mmol/L (3.5-5.1); TOTAL PROTEIN, SERUM 5.2 g/dL (6.4-8.2)
[2021-06-10 08:31] LABS: MAGNESIUM 1.1 mg/dL (1.8-2.4)
[2021-06-10 09:00] VITALS: BP 120/90
[2021-06-10] MEDS: THIAMINE HCL 100 MG TABLET PO SCH (09:00)
[2021-06-10] MEDS: GABAPENTIN 300 MG CAPSULE PO SCH (09:00)
[2021-06-10] MEDS: FOLIC ACID 1 MG TABLET PO SCH (09:00)
[2021-06-10] MEDS: PANTOPRAZOLE 40 MG VIAL IV SCH (09:00)
[2021-06-10] MEDS: CARVEDILOL 6.25 MG TABLET PO SCH (09:00)
[2021-06-10] MEDS: LOSARTAN POTASSIUM 50 MG TABLET PO SCH (09:00)
[2021-06-10] MEDS: ENSURE ENLIVE 237 ML LIQUID (VANILLA) PO SCH (09:00)
--- NOTE | 2021-06-10 09:55 | NUR ---
RN NOTES PATIENT'S MAGNESIUM IS 1.1. NOTIFIED MD.
[2021-06-10] MEDS ORDERED: MAGNESIUM OXIDE 400 MG TABLET PO ONE (10:00)
[2021-06-10] MEDS ORDERED: Magnesium 1GM/D5W 100ML PREMIX 100 ML IV SCH (10:00)
--- NOTE | 2021-06-10 10:49 | NUR ---
RN NOTES PATIENT WENT AMA DESPITE EXPLAINING RISK. PER PATIENT I CAN DO EVERYTHING AT HOME BETTER THAN THIS HOSPITAL. "WHAT KIND OF A HOSPITAL IS THIS?" PROVIDED DISCHARGE INSTRUCTIONS, HEALTH TEACHINGS. NO MEDICATION LIST. DR. JEN SEGOVIA AWARE AND SAW PATIENT. GAVE 1000 MG MAGNESIUM ORAL. IV ACCESS REMOVED. ALL BELONGINGS CHECKED AND RETURNED. PAPERS SIGNED. ACCOMPANIEDTO LOBBY VIA WHEELCHAIR AND WILL TAKE UBER TO GO HOME. ADVISED TO SEE PMD AND MAKE APPOINTMENT JAVAD.
[2021-06-10 13:07] LABS: *ANA ANTI-CENTROMERE B AB <0.2 AI (0.0-0.9); *ANA ANTI-DNA(DS) AB, QN <1 IU/mL (0-9); *ANA ANTI-JO-1 <0.2 AI (0.0-0.9); *ANA ANTICHROMATIN ANTIBODY <0.2 AI (0.0-0.9); *ANA RNP ANTIBODIES <0.2 AI (0.0-0.9); *ANA SJOGREN'S ANTI-SS-A <0.2 AI (0.0-0.9); *ANA SJOGREN'S ANTI-SS-B <0.2 AI (0.0-0.9); *ANAANTI-SCLERODERMA-70 AB <0.2 AI (0.0-0.9); *ANASMITH AB <0.2 AI (0.0-0.9)
== END 2021-06-10 10:46 | disposition left against medical advice (07) | DRG 770 ==
LOC: ER 14:47 → TELE1 21:30 → TELE-TD 22:06 → ICU 06-07 00:06 → TELE1 06-09 18:57
PROVIDERS: ADMIT Internal Medicine; ATTEND Internal Medicine
DX: F10.229 Alcohol dependence with intoxication, unspecified (principal); N17.0 Acute kidney failure with tubular necrosis; D61.818 Other pancytopenia; E87.2 Acidosis; E11.649 Type 2 diabetes mellitus with hypoglycemia without coma; G31.2 Degeneration of nervous system due to alcohol; E83.39 Other disorders of phosphorus metabolism; M16.11 Unilateral primary osteoarthritis, right hip; Y90.7 Blood alcohol level of 200-239 mg/100 ml; G89.29 Other chronic pain; I10 Essential (primary) hypertension; E83.42 Hypomagnesemia; Z20.822 Contact with and (suspected) exposure to COVID-19; K76.0 Fatty (change of) liver, not elsewhere classified; R74.01 Elevation of levels of liver transaminase levels; E87.6 Hypokalemia; E11.65 Type 2 diabetes mellitus with hyperglycemia; F10.239 Alcohol dependence with withdrawal, unspecified; K52.9 Noninfective gastroenteritis and colitis, unspecified
CPT/HCPCS: 36415; 36600; 71045-TC; 73521; 80048-TC; 80053-TC; 80076-TC; 81001; 82010-TC; 82140-TC; 82728-TC; 82784; 82962-TC; 83540-TC; 83605-TC; 83690-TC; 83735-TC; 83970; 84100-TC; 84155; 84165; 84484-TC; 85025-TC; 85610-TC; 85730-TC; 86225; 86235; 86334; 86431-TC; 86706; 86803; 87040-TC; 87081-TC; 87340; 87806; 97116-TC; 97530-TC; A4349; A9563; C9113; C9803; G0378; G0480; J0610; J0692; J1815; J1885; J2060; J2270; J2405; J3370; J3411; J3475; J3480; J3490; J7030; J7042; J7050; J7060; Q0162; Q9967; U0003

== ENCOUNTER 2021-09-22 17:09 | Inpatient (IN) | payer MEDICAID, OTHER ==
[~2021-09-22] VITALS: Ht 182.9 cm; Wt 60.3 kg
[~2021-09-22 17:09] MED LIST changes: -LISI10TA30 PO; +LOSA50TA3 PO; -ONDA4TAB5 PO
--- NOTE | 2021-09-22 17:25 | NUR ---
BIBRA 839 C/O NAUSEA AND VOMITING X5DAYS, "MY FEET HURT TOO". RATES BOTH FEET PAIN 5/10. ABDOMEN SOFT AND NON-DISTENDED. WILL CONTINUE TO MONITOR THE PATIENT.
[2021-09-22] MEDS ORDERED: ONDANSETRON HCL/PF 4 MG/2 ML VIAL IVP ONE (17:30)
[2021-09-22] MEDS ORDERED: IV NS 0.9% 1,000 ML BAG IV ONE (17:30)
[2021-09-22] MEDS ORDERED: ONDANSETRON HCL/PF 4 MG/2 ML VIAL ONE (17:40)
[2021-09-22] MEDS ORDERED: ACETAMINOPHEN ES 500 MG TABLET ONE (18:22)
[2021-09-22 18:23] LABS: BASOPHILS % (AUTO) 0.4 % (0.0-2.0); EOSINOPHILS % (AUTO) 0.3 % (0.0-6.0); HEMATOCRIT 39 % (39-51); HEMOGLOBIN 13.6 g/dL (13.5-17.5); LYMPHOCYTES # (AUTO) 1.1 K/uL (0.8-4.8); LYMPHOCYTES % (AUTO) 20.1 % (20.0-44.0); MEAN CORPUSCULAR HGB CONC 35 g/dl (31.0-36.0); MEAN CORPUSCULAR VOLUME 90 fL (80-96); MONOCYTES # (AUTO) 1.1 K/uL (0.1-1.30); MONOCYTES % (AUTO) 20.5 % (2.0-12.0); NEUTROPHILS # (AUTO) 3.2 K/uL (1.8-8.9); NEUTROPHILS % (AUTO) 58.7 % (43.0-81.0); PLATELET COUNT (AUTO) 332 K/uL (150-450); RED BLOOD CELL COUNT(AUTO) 4.29 MIL/uL (4.5-6.0); WHITE BLOOD COUNT (AUTO) 5.5 K/uL (4.3-11.0)
[2021-09-22 18:30] LABS: ALBUMIN 4.3 g/dL (3.4-5.0); BILIRUBIN,DIRECT 0.2 mg/dL (0.0-0.2); BILIRUBIN,TOTAL 0.6 mg/dL (0.2-1.0); CALCIUM, SERUM 10.1 mg/dL (8.5-10.1); CREATININE 1.7 mg/dL (0.6-1.3); TOTAL PROTEIN, SERUM 8.6 g/dL (6.4-8.2)
[2021-09-22] MEDS ORDERED: ACETAMINOPHEN ES 500 MG TABLET PO ONE (18:30)
--- NOTE | 2021-09-22 18:46 | NUR ---
PT HAS CRITICAL LAB. POTASSIUM OF 2.[address] RIBERA WAS NOTIFIED.
[2021-09-22 18:47] LABS: POTASSIUM 2.1 mmol/L (3.5-5.1)
[2021-09-22] MEDS ORDERED: POTASSIUM CL. PREMIX PERIPHER. 100 ML ONE (18:57)
[2021-09-22] MEDS ORDERED: CARV6.252 PO (19:05)
[2021-09-22] MEDS: POTASSIUM CL. PREMIX PERIPHER. 50 ML IV SCH ×2 (19:08→20:08)
[2021-09-22 19:11] LABS: BASOPHILS % (MANUAL) 1 % (0.0-2.0); EOSINOPHILS % (MANUAL) 1 % (0-4); LYMPHOCYTES % (MANUAL) 23 % (16-48); MONOCYTES % (MANUAL) 13 % (0-11.0); NEUTROPHILS % (MANUAL) 62 (42-76)
--- NOTE | 2021-09-22 19:20 | NUR ---
STILL UNABLE TO GIVE URINE SAMPLE AT THIS TIME
--- NOTE | 2021-09-22 19:45 | NUR ---
COVID SWAB DONE AND SENT TO LAB
--- NOTE | 2021-09-22 20:02 | NUR ---
MRSA SWAB COLLECTED AND SENT TO LAB. PATIENT'S BELONGINGS LIST DONE.
--- NOTE | 2021-09-22 20:25 | NUR ---
ER SPEAKING TO SANTHOSH PALMER DNP REGARDING ADMISSION
--- NOTE | 2021-09-22 20:50 | NUR ---
BACK FROM CT, ON MONITOR AND PULSE OX. AWAITING BED FOR ADMISSION.
--- NOTE | 2021-09-22 21:41 | NUR ---
REPORT GIVEN TO SERGIO BRADLEY
--- NOTE | 2021-09-22 22:25 | NUR ---
PATIENT TRANSFERRED UNDER ACLS
[2021-09-22 22:30] VITALS: BP 108/77
[2021-09-22] MEDS ORDERED: ENOXAPARIN SODIUM 30 MG/0.3 ML DISP.SYRIN SQ SCH (22:30)
[2021-09-22] MEDS ORDERED: ACETAMINOPHEN 325 MG TABLET PO PRN (22:30)
[2021-09-22] MEDS ORDERED: Z GUARD REMEDY 2 OZ OINT TP PRN (22:30)
[2021-09-22] MEDS ORDERED: ONDANSETRON HCL/PF 4 MG/2 ML VIAL IVP PRN (22:30)
[2021-09-22] MEDS ORDERED: Potassium Chloride 40 MEQ in IV D5/ 0.9% NACL 1,000 ML IV PRN (22:30)
--- NOTE | 2021-09-22 22:30 | NUR ---
MANAGER PRODUCTCOLLEGE SERVICE OFFICER NOTE PATIENT ARRIVED ON FLOOR, ALERT/ORIENTED X 4, PATIENT ABLE TO MAKE NEEDS KNOWN. PT STABLE ON RA, NO S/S OF DISTRESS OR SOB NOTED, BREATHING EVEN AND UNLABORED. LEFT AC #20G IV ACCESS INTACT AND FLUSHING WELL. PATIENT REPORTING 9/10 BILATERAL LEG PAIN, STATED HE HAS NEUROPATHY. PATIENT ON EXTERNAL CONTINUOUS MINER OPERATOR HELPER READING SINUS RHYTHM, HR: 77. PATIENT BELONGINGS DOCUMENTED AND PLACED IN CHART. ORIENTED PATIENT TO ROOM AND HOW TO USE CALL LIGHT. SAFETY MEASURES IN PLACE: CALL LIGHT WITHIN REACH, SIDE RAILS UP X 2, TABLE WITHIN REACH, BED LOCKED IN LOW POSITION, BED ALARM ON. WILL CONTINUE TO MONITOR PATIENT
[2021-09-22] MEDS: MORPHINE SULFATE INJ 4 MG/ML DISP.SYRIN IV PRN (23:36)
[2021-09-23] VITALS (7 sets, daily range): BP systolic 93–113; BP diastolic 58–77
[2021-09-23] MEDS: ENOXAPARIN SODIUM 30 MG/0.3 ML DISP.SYRIN SQ SCH ×2 (00:10→21:43)
[2021-09-23] MEDS: LORAZEPAM INJ 2 MG/ML VIAL IV PRN ×2 (00:32→05:04)
[2021-09-23] MEDS ORDERED: Potassium Chloride 20 MEQ in IV D5/ 0.9% NACL 1,000 ML IV PRN (02:00)
[2021-09-23] MEDS ORDERED: IV PREMIX NS +20MEQ KCL 1 L IV ONE (02:06)
[2021-09-23] MEDS: Potassium Chloride 20 MEQ in IV NS 0.9% 1,000 ML IV PRN ×2 (02:16→18:28)
[2021-09-23] MEDS: MORPHINE SULFATE INJ 4 MG/ML DISP.SYRIN IV PRN ×3 (03:45→20:10)
--- NOTE | 2021-09-23 04:09 | NUR ---
AQUATIC INSTRUCTOR NOTE INFORMED DR. PALMER THAT ONLY POTASSIUM CHLORIDE 20 MEQ IN IV NS IS AVAILABLE FOR IVF, STATED THAT IS OKAY TO GIVE THAT FOR NOW. ORDER VERIFIED AND CARRIED OUT
[2021-09-23 06:32] LABS: BASOPHILS % (AUTO) 0.7 % (0.0-2.0); EOSINOPHILS % (AUTO) 0.7 % (0.0-6.0); HEMATOCRIT 32 % (39-51); HEMOGLOBIN 11.5 g/dL (13.5-17.5); LYMPHOCYTES # (AUTO) 1.6 K/uL (0.8-4.8); LYMPHOCYTES % (AUTO) 41.8 % (20.0-44.0); MEAN CORPUSCULAR HGB CONC 36 g/dl (31.0-36.0); MEAN CORPUSCULAR VOLUME 91 fL (80-96); MONOCYTES # (AUTO) 0.7 K/uL (0.1-1.30); MONOCYTES % (AUTO) 17.3 % (2.0-12.0); NEUTROPHILS # (AUTO) 1.5 K/uL (1.8-8.9); NEUTROPHILS % (AUTO) 39.5 % (43.0-81.0); PLATELET COUNT (AUTO) 267 K/uL (150-450); RED BLOOD CELL COUNT(AUTO) 3.46 MIL/uL (4.5-6.0); WHITE BLOOD COUNT (AUTO) 3.9 K/uL (4.3-11.0)
[2021-09-23 06:50] LABS: THYROID STIMULATING HORMONE 1.356 uIU/mL (0.358-3.74)
[2021-09-23 07:00] LABS: BILIRUBIN,TOTAL 0.5 mg/dL (0.2-1.0); CALCIUM, SERUM 8.5 mg/dL (8.5-10.1); MAGNESIUM 1.8 mg/dL (1.8-2.4); PHOSPHORUS 3.3 mg/dL (2.5-4.9); TOTAL PROTEIN, SERUM 6.8 g/dL (6.4-8.2)
--- NOTE | 2021-09-23 07:24 | NUR ---
CONCRETE MIXER LOADER TRUCK MOUNTED CLOSING NOTE PATIENT SLEEPING COMFORTABLY IN BED. PT STABLE ON RA, NO S/S OF DISTRESS OR SOB NOTED, BREATHING EVEN AND UNLABORED. NO SIGNIFICANT CHANGES THROUGHOUT SHIFT, PT SLEPT WELL. PATIENT ON EXTERNAL PENCIL MAKER READING SINUS RHYTHM. IV ACCESS ON RIGHT AC #20G RUNNING POTASSIUM CHLORIDE 20 MEQ IN NS @ 125 ML/HR. SAFETY MEASURES IN PLACE: CALL LIGHT WITHIN REACH, BED LOCKED IN LOW POSITION, SIDE RAILS UP X 2, BED LOCKED IN LOW POSITION, BED ALARM ON. ENDORSED TO DAY SHIFT NURSE FOR CONTINUITY OF CARE
[2021-09-23 07:29] LABS: ALBUMIN 3.5 g/dL (3.4-5.0); CREATININE 1.6 mg/dL (0.6-1.3)
--- NOTE | 2021-09-23 07:30 | NUR ---
PT RECEIVED RESTING COMFORTABLY IN BED. NO S/S OR C/O PAIN OR DISTRESS NOTED. SIDE RAILS UP X2, CALL LIGHT LEFT WITHIN REACH. WILL CONTINUE PLAN OF CARE.
[2021-09-23 08:09] LABS: POTASSIUM 1.8 mmol/L (3.5-5.1)
[2021-09-23] MEDS: LOSARTAN POTASSIUM 50 MG TABLET PO SCH (09:00)
[2021-09-23] MEDS ORDERED: POTASSIUM CHLORIDE 20 MEQ TAB.PRT.SR PO ONE ×2 (09:00→13:00)
[2021-09-23] MEDS ORDERED: Magnesium 1GM/D5W 100ML PREMIX PIGGYBACK IV ONE (09:00)
[2021-09-23] MEDS: CARVEDILOL 6.25 MG TABLET PO SCH ×2 (09:00→21:00)
[2021-09-23] MEDS: MGSO4/D5W 100 ML IV SCH ×5 (09:06→14:00)
[2021-09-23 10:08] LABS: EOSINOPHILS % (MANUAL) 1 % (0-4); LYMPHOCYTES % (MANUAL) 39 % (16-48); MONOCYTES % (MANUAL) 18 % (0-11.0); NEUTROPHILS % (MANUAL) 42 (42-76)
[2021-09-23] MEDS: POTASSIUM CL. PREMIX PERIPHER. 50 ML IV SCH ×4 (10:33→15:03)
--- NOTE | 2021-09-23 18:49 | NUR ---
CHANGE OF SHIFT REPORT PT RESTING COMFORTABLY IN BED. NO S/S OR C/O PAIN OR DISTRESS NOTED. SIDE RAILS UP X2, CALL LIGHT LEFT WITHIN REACH. PT KEPT CLEAN DRY, AND COMFORTABLE. NO SIGNIFICANT CHANGES SINCE PREVIOUS SHIFT.
--- NOTE | 2021-09-23 19:55 | NUR ---
QUILTING MACHINE OPERATOR OPENING NOTES RECEIVED PATIENT IN BED, AWAKE, WATCHING TV. AOx3. ABLE TO MAKE NEEDS KNOWN. ON RA AND TOLERATING WELL. NO SOB NOTED. NO S/SX OF RESPIRATORY DISTRESS NOTED. TELE MONITOR DETECTS NORMAL SINUS RHYTHM WITH RATE OF 84. IV ACCESS IN LAC #20G RUNNING NS WITH 20 mEQ OF KCL @125 ML/HR. SAFETY PRECAUTIONS IN PLACE: BED IN LOWEST, LOCKED POSITION, SIDERAILS UPx2, AND BRAKES ON. TABLE AND CALL LIGHT WITHIN REACH. WILL CONTINUE TO MONITOR.
--- NOTE | 2021-09-23 20:10 | NUR ---
ADMINISTERED PAIN MEDICATION PER MD ORDER FOR PAIN. VS WNL. WILL CONTINUE TO MONITOR,
[2021-09-23] MEDS: GABAPENTIN 300 MG CAPSULE PO PRN (21:47)
[2021-09-24] VITALS: BP 105/60
[2021-09-24] MEDS: LORAZEPAM INJ 2 MG/ML VIAL IV PRN ×2 (00:14→21:29)
--- NOTE | 2021-09-24 00:14 | NUR ---
ADMINISTERED ATIVAN FOR ANXIETY PER MD ORDER. VS WNL. WILL CONTINUE TO MONITOR.
[2021-09-24 04:00] VITALS: BP 97/71
[2021-09-24] MEDS: MORPHINE SULFATE INJ 4 MG/ML DISP.SYRIN IV PRN ×4 (05:35→18:57)
--- NOTE | 2021-09-24 05:36 | NUR ---
ADMINISTERED MORPHINE PER MD ORDER FOR PAIN. VS WNL. WILL CONTINUE TO MONITOR.
--- NOTE | 2021-09-24 07:00 | NUR ---
SOCIAL SCIENCE TEACHER CLOSING NOTES PATIENT IN BED, AWAKE, WATCHING TV. AOx3. ABLE TO MAKE NEEDS KNOWN. ON RA AND TOLERATING WELL. NO SOB NOTED. NO S/SX OF RESPIRATORY DISTRESS NOTED. TELE MONITOR DETECTS NORMAL SINUS RHYTHM WITH RATE FROM 70-80. IV ACCESS IN LAC #20G RUNNING NS WITH 20 mEQ OF KCL @125 ML/HR. ALL NEEDS MET. ADMINSTERED PAIN AND ANXIETY MEDICATION. PT KEPT CLEAN AND DRY. SAFETY PRECAUTIONS IN PLACE: BED IN LOWEST, LOCKED POSITION, SIDERAILS UPx2, AND BRAKES ON. TABLE AND CALL LIGHT WITHIN REACH. WILL ENDORSE TO ONCOMING SHIFT FOR SAMINA.
[2021-09-24 08:00] VITALS: BP 100/75
[2021-09-24] MEDS: LOSARTAN POTASSIUM 50 MG TABLET PO SCH (08:49)
[2021-09-24] MEDS: CARVEDILOL 6.25 MG TABLET PO SCH ×2 (08:55→20:46)
[2021-09-24] MEDS: Potassium Chloride 20 MEQ in IV NS 0.9% 1,000 ML IV PRN (09:45)
[2021-09-24 12:00] VITALS: BP 101/75
[2021-09-24] MEDS: GABAPENTIN 300 MG CAPSULE PO PRN (13:06)
[2021-09-24] MEDS ORDERED: POTASSIUM CHLORIDE 20 MEQ TAB.PRT.SR PO ONE ×2 (13:30→14:30)
[2021-09-24 16:00] VITALS: BP 98/71
[2021-09-24] MEDS: ENSURE ENLIVE CHOC 237 ML CAN PO SCH (17:30)
--- NOTE | 2021-09-24 18:42 | NUR ---
POTASSIUM REPLACEMENT GIVEN.THUS FAR MED X2 WITH MORPHINE AND X1 WITH NEURONTIN.
--- NOTE | 2021-09-24 19:09 | NUR ---
MEDICATED AGAIN FOR PAIN AND NAUSEA.JUST VOMITED SMALL AMT. UNDIGESTED FOOD.
--- NOTE | 2021-09-24 19:30 | NUR ---
RN OPENING NOTE RECEIVED PATIENT IN BED. A/OX3. TOLERATING ROOM AIR. RESPIRATIONS ARE EVEN AND UNLABORED. NO S/S SOB NOTED. C/O PAIN, INFORMED HIM HE JUST RECEIVED HIS PAIN MEDICATION. IN NO APPARENT DISTRESS. TELE MONITOR READS SINUS RHYTHM HR 90. IV ACCESS IN LAC#20 RUNNING 20MEG KCL IN NS@125ML/HR. BED IS LOW AND LOCKED, HOB ELEVATED IN SEMI FOWLERS SIDE RIALS UP X2, CALL LIGHT WITHIN REACH.
[2021-09-24 20:00] VITALS: BP 98/70
[2021-09-24] MEDS: ENOXAPARIN SODIUM 30 MG/0.3 ML DISP.SYRIN SQ SCH (21:32)
[2021-09-25] VITALS: BP 100/71
[2021-09-25] MEDS: Potassium Chloride 20 MEQ in IV NS 0.9% 1,000 ML IV PRN (00:21)
[2021-09-25] MEDS: MORPHINE SULFATE INJ 4 MG/ML DISP.SYRIN IV PRN ×2 (00:22→04:53)
[2021-09-25 04:00] VITALS: BP 100/78
[2021-09-25 06:31] LABS: BASOPHILS % (AUTO) 0.7 % (0.0-2.0); EOSINOPHILS % (AUTO) 1.1 % (0.0-6.0); HEMATOCRIT 29 % (39-51); HEMOGLOBIN 9.9 g/dL (13.5-17.5); LYMPHOCYTES # (AUTO) 1.7 K/uL (0.8-4.8); LYMPHOCYTES % (AUTO) 32.8 % (20.0-44.0); MEAN CORPUSCULAR HGB CONC 34 g/dl (31.0-36.0); MEAN CORPUSCULAR VOLUME 95 fL (80-96); MONOCYTES # (AUTO) 0.6 K/uL (0.1-1.30); MONOCYTES % (AUTO) 11.6 % (2.0-12.0); NEUTROPHILS # (AUTO) 2.8 K/uL (1.8-8.9); NEUTROPHILS % (AUTO) 53.8 % (43.0-81.0); PLATELET COUNT (AUTO) 211 K/uL (150-450); RED BLOOD CELL COUNT(AUTO) 3.07 MIL/uL (4.5-6.0); WHITE BLOOD COUNT (AUTO) 5.3 K/uL (4.3-11.0)
[2021-09-25 06:37] LABS: CALCIUM, SERUM 8.5 mg/dL (8.5-10.1); MAGNESIUM 1.7 mg/dL (1.8-2.4); PHOSPHORUS 1.5 mg/dL (2.5-4.9); POTASSIUM 3.5 mmol/L (3.5-5.1)
--- NOTE | 2021-09-25 06:55 | NUR ---
RN NOTE PATIENT RESTING IN BED. A/OX3, PERIODS OF CONFUSION; FORGETFULNESS. REMAINS TOLERATING ROOM AIR. NO RESP DISTRESS. MANAGED PAIN WITH MORPHINE. PATIENT IS FORGETFUL OF WHEN LAST DOSE WAS GIVEN AND REQUEST WITH EVERY STAFF MEMBER. ASKED PATIENT HIS PAIN LEVEL, STATES "NOW THAT I AM ANNOYED AN 8/10". ASKED IF PATIENT TAKES ANY MEDICATION AT HOME FOR PAIN, PATIENT STATES NO. PATIENT IS VERY DEMANDING FOR PAIN MEDICATION. TELE MONITOR READS SINUS RHYTHM. LAC#20 RUNNING 20MEG KCL IN NS@125ML/HR. BED REMAINS LOW AND LOCKED, HOB ELEVATED IN SEMI FOWLERS SIDE RIALS UP X2, CALL LIGHT WITHIN REACH. WILL ENDORSE TO ONCOMING SHIFT.
--- NOTE | 2021-09-25 07:30 | NUR ---
RECEIVED PT. IN AM ALERT AND ORIENTED X4.VS STABLE.ON ROUNDS INITIALLY ASKING FOR PAIN MED.IV INFUSING
[2021-09-25 08:00] VITALS: BP 112/82
[2021-09-25] MEDS: ENSURE ENLIVE CHOC 237 ML CAN PO SCH (08:46)
[2021-09-25] MEDS: CARVEDILOL 6.25 MG TABLET PO SCH (08:47)
[2021-09-25] MEDS: LOSARTAN POTASSIUM 50 MG TABLET PO SCH (08:50)
[2021-09-25] MEDS: GABAPENTIN 300 MG CAPSULE PO PRN (10:24)
[2021-09-25] MEDS: Magnesium 1GM/D5W 100ML PREMIX 100 ML IV SCH ×2 (11:02→12:28)
[2021-09-25] MEDS ORDERED: MORPHINE SULFATE INJ 4 MG/ML DISP.SYRIN IV PRN (11:30)
[2021-09-25] MEDS ORDERED: K PHOS NEUTRAL 250 MG TABLET PO ONE (15:30)
[2021-09-25 16:00] VITALS: BP 99/70
--- NOTE | 2021-09-25 16:30 | NUR ---
PT. HAD PHOSPHOROUS REPLACEMENT.MG REPLACEMENT.IV INFUSING.ADDITIONALLY RN HAD MORPHINE DOSE LOWERED AND PT. MEDICATED WITH NEURONTIN X1 FOR PAIN WELL MORPHINE.
--- NOTE | 2021-09-25 16:35 | NUR ---
ALL PAPERS SIGNED INCLUDING BELONGING SHEET.HEP LOCK OUT. TAKEN TO LOBBY VIA W/C ACCOMPANIED BY SUBSTATION OPERATOR APPRENTICE.
== END 2021-09-25 16:30 | disposition home or self-care (01) | DRG 775 ==
LOC: ER 17:13 → TELE 21:21 → MED 09-25 08:53
PROVIDERS: ADMIT Nurse Practitioner Acute Care; ATTEND Registered Nurse
DX: F10.239 Alcohol dependence with withdrawal, unspecified (principal); F10.20 Alcohol dependence, uncomplicated; N17.0 Acute kidney failure with tubular necrosis; R64 Cachexia; E44.0 Moderate protein-calorie malnutrition; E86.1 Hypovolemia; K52.9 Noninfective gastroenteritis and colitis, unspecified; E86.0 Dehydration; G62.9 Polyneuropathy, unspecified; E87.1 Hypo-osmolality and hyponatremia; I10 Essential (primary) hypertension; E87.6 Hypokalemia; Z98.890 Other specified postprocedural states; M16.11 Unilateral primary osteoarthritis, right hip; Z86.018 Personal history of other benign neoplasm; E11.40 Type 2 diabetes mellitus with diabetic neuropathy, unspecified; Z79.899 Other long term (current) drug therapy; R74.01 Elevation of levels of liver transaminase levels; Z87.19 Personal history of other diseases of the digestive system; Z68.1 Body mass index [BMI] 19.9 or less, adult; Y90.9 Presence of alcohol in blood, level not specified; Z76.5 Malingerer [conscious simulation]
CPT/HCPCS: 36415; 80048-TC; 80053-TC; 80061-TC; 80076-TC; 83690-TC; 83735-TC; 84100-TC; 84132-TC; 84443-TC; 85025-TC; 87081-TC; 97116-TC; 97530-TC; A6403; C9803; G0378; J1650; J2060; J2270; J2405; J3475; J3480; J3490; J7030; J7040; J7042

== ENCOUNTER 2022-06-04 20:52 | Emergency (ER) | payer OTHER ==
--- NOTE | 2022-06-04 21:53 | NUR ---
LEFT WITHOUT BEING SEEN
== END 2022-06-04 21:54 | disposition left against medical advice (07) ==
LOC: ER 21:05
DX: Z53.21 Procedure and treatment not carried out due to patient leaving prior to being seen by health care provider (principal)

== ENCOUNTER 2023-10-27 12:49 | Emergency (ER) | payer OTHER ==
[~2023-10-27] VITALS: Ht 182.9 cm; Wt 74.8 kg
[2023-10-27 13:23] VITALS: BP 121/80; TEMP 98.3; O2SAT 99
[2023-10-27] MEDS ORDERED: IBUP-1955 PO (17:01)
[2023-10-27] MEDS: IBUPROFEN 600 MG TABLET PO ONE (17:15)
[2023-10-27] MEDS ORDERED: IBUPROFEN 600 MG TABLET ONE (17:22)
== END 2023-10-27 18:18 | disposition home or self-care (01) ==
LOC: ER 12:55
DX: S63.602A Unspecified sprain of left thumb, initial encounter (principal); I10 Essential (primary) hypertension; M16.11 Unilateral primary osteoarthritis, right hip; Z60.2 Problems related to living alone; W22.8XXA Striking against or struck by other objects, initial encounter; Y93.89 Activity, other specified; Y92.89 Other specified places as the place of occurrence of the external cause; Y99.8 Other external cause status
CPT/HCPCS: 29130; 73130; 99283; A6403

== ENCOUNTER 2025-01-12 16:13 | Emergency (ER) | payer OTHER, MEDICAID ==
[~2025-01-12] VITALS: Ht 185.4 cm; Wt 79.4 kg
[~2025-01-12 16:13] MED LIST changes: +IBUP-1955 PO
[2025-01-12 17:21] LABS: BASOPHILS # (AUTO) 0.1 K/uL (0.0-0.2); BASOPHILS % (AUTO) 0.9 % (0.0-2.0); EOSINOPHILS # (AUTO) 0.1 K/uL (0.0-0.7); EOSINOPHILS % (AUTO) 0.9 % (0.0-6.0); HEMATOCRIT 44 % (39-51); HEMOGLOBIN 14.9 g/dL (13.5-17.5); LYMPHOCYTES # (AUTO) 2.1 K/uL (0.8-4.8); MEAN CORPUSCULAR HEMOGLOBIN 29 PG (26.0-33.0); MEAN CORPUSCULAR HGB CONC 34 g/dl (31.0-36.0); MEAN CORPUSCULAR VOLUME 86 fL (80-96); MONOCYTES # (AUTO) 0.6 K/uL (0.1-1.30); MONOCYTES % (AUTO) 7.6 % (2.0-12.0); NEUTROPHILS # (AUTO) 5.5 K/uL (1.8-8.9); NEUTROPHILS % (AUTO) 65.6 % (43.0-81.0); PLATELET COUNT (AUTO) 178 K/uL (150-450); RED BLOOD CELL COUNT(AUTO) 5.15 MIL/uL (4.5-6.0); RED CELL DISTRIBUTION WIDTH 15.7 % (11.5-15.0); WHITE BLOOD COUNT (AUTO) 8.3 K/uL (4.3-11.0)
[2025-01-12 17:35] LABS: CALCIUM, SERUM 8.5 mg/dL (8.5-10.1); CREATININE 1.1 mg/dL (0.6-1.3); POTASSIUM 3.7 mmol/L (3.5-5.1)
[2025-01-12 17:40] LABS: ALBUMIN 3.4 g/dL (3.4-5.0); BILIRUBIN,DIRECT 0.1 mg/dL (0.0-0.2); BILIRUBIN,TOTAL 0.3 mg/dL (0.2-1.0); TOTAL PROTEIN, SERUM 6.9 g/dL (6.4-8.2)
[2025-01-12] MEDS ORDERED: IBUP-1955 PO (18:30)
[2025-01-12 18:38] VITALS: BP 128/75; TEMP 98; O2SAT 98
[2025-01-12 18:47] LABS: APPEARANCE,URINE CLEAR (CLEAR); BILIRUBIN,URINE NEGATIVE (NEGATIVE); BLOOD, URINE NEGATIVE Ery/uL (NEGATIVE); COLOR,URINE YELLOW (YELLOW); KETONES,URINE NEGATIVE (NEGATIVE); LEUKOCYTE ESTERASE ,URINE NEGATIVE (NEGATIVE); NITRITE, URINE NEGATIVE (NEGATIVE); PROTEIN,URINE NEGATIVE (NEGATIVE); UGLUCOSE NEGATIVE (NEGATIVE); UROBILINOGEN,URINE 0.2 EU/dL (0.2)
== END 2025-01-12 18:38 | disposition home or self-care (01) ==
LOC: ER 17:18
DX: K40.90 Unilateral inguinal hernia, without obstruction or gangrene, not specified as recurrent (principal); I10 Essential (primary) hypertension; Z79.899 Other long term (current) drug therapy; Z86.0100 Personal history of colon polyps, unspecified; Z86.79 Personal history of other diseases of the circulatory system; Z87.39 Personal history of other diseases of the musculoskeletal system and connective tissue; Z60.2 Problems related to living alone
CPT/HCPCS: 36415; 80048-TC; 80076-TC; 83690-TC; 85025-TC